=== PATIENT | male | born 1950 | race Caucasian/White ===

== ENCOUNTER 2020-07-26 08:21 | Emergency (ER) | payer MEDICARE, BC ==
[2020-07-26] MEDS ORDERED: Sodium Chloride 0.9% 1,000 ML IV SCH (08:45)
--- NOTE | 2020-07-26 08:48 | EDM.PDOC ---
ED HPI GENERAL MEDICAL PROBLEM - General Chief Complaint: Respiratory Problem Stated Complaint: MEDICAL EVAL Time Seen by Provider: 07/26/20 08:32 Source of Information: Reports: Patient History Limitations: Reports: No Limitations - History of Present Illness INITIAL COMMENTS - FREE TEXT/NARRATIVE: 69-year-old male presents to the ED for evaluation of dyspnea on minimal exerti on. This is a dramatic pipe changer the last 48 hours. Patient had a recent right-sided Port-A-Cath placed and it has been utilized for chemotherapy two days ago for urinary bladder cancer which was diagnosed in April of this year. He did have quite a bit of blood per urethra last night but better this morning. He is appreciated swelling of both lower extremities the right much more so than the left. He feels it has gone down a little bit overnight. Denies cough or sputum production. No fever or chills. Onset: Sudden Onset Date: 07/25/20 Duration: Hour(s):, Constant Location: Reports: Chest (Dyspnea on minimal exertion.), Lower Extremity, Left (Right lower extremity swelling left lower extremity swelling), Lower Extremity, Right Quality: Reports: Other (Denies any chest pain per se.) Severity: Moderate Improves with: Reports: Rest Worsens with: Reports: Movement Context: Denies: Activity, Exercise (Exertion makes it much worse.), Lifting, Sick Contact, Trauma, Other Associated Symptoms: Reports: Cough, Shortness of Breath. Denies: No Other Symptoms, Confusion, Chest Pain, cough w sputum (Normal with no sputum production), Diaphoresis, Fever/Chills, Headaches, Loss of Appetite, Malaise, Nausea/Vomiting, Rash, Seizure, Syncope, Weakness Treatments HAIRSPRING TRUER: Reports: Other (see below) (None.) Chest Pain Score (Numeric/FACES): 4 - Related Data Allergies Allergy/AdvReac Type Severity Reaction Status Date / Time No Known Allergies Allergy Verified 07/26/20 08:27 Home Meds: Home Meds Aspirin [Halfprin] 81 mg PO DAILY 07/26/20 [History] Cholecalciferol (Vitamin D3) [Vitamin D3] 1,000 unit PO DAILY 07/26/20 [History] Furosemide [Lasix] 20 mg PO DAILY #21 tab 07/26/20 [Rx] Loratadine 10 mg PO DAILY 07/26/20 [History] Losartan/Hydrochlorothiazide [Losartan-HCTZ 100-12.5 MG] 12.5 - 100 mg PO DAILY 07/26/20 [History] Magnesium Oxide [Magnesium] 500 mg PO BID 07/26/20 [History] Rosuvastatin [Crestor] 10 mg PO DAILY 07/26/20 [History] metFORMIN [Glucophage XR] 500 mg PO BID 07/26/20 [History] Past Medical History Cardiovascular History: Reports: Hypertension (He off his metoprolol and taking only losartan for blood pressure control) Oncologic (Cancer) History: Reports: Bladder (Urinary bladder cancer diagnosed in April of this year recently started chemotherapy for this on July 24.) Social & Family History - Living Situation & Occupation Living situation: Reports: Occupation: Retired ED ROS GENERAL - Review of Systems Review Of Systems: See Below Constitutional: Reports: Malaise, Weakness, Fatigue. Denies: Fever, Chills HEENT: Reports: No Symptoms Respiratory: Reports: Shortness of Breath, Cough (Minimal). Denies: Wheezing, Pleuritic Chest Pain, Sputum, Hemoptysis ( no sputum production) Cardiovascular: Reports: Blood Pressure Problem, Dyspnea on Exertion, Edema (Both lower extremities have become more swollen over the last few days.). D enies: Chest Pain, Claudication (On medication for hypertension), Lightheadedness, Orthopnea Endocrine: Reports: Fatigue GI/Abdominal: Reports: No Symptoms : Reports: Other (Patient states he voided normally shortly before midnight but about 2:00 this morning he passed a large amount of pure bright bright red blood and clots. Later this morning the urine was again clear.) Musculoskeletal: Reports: Back Pain, Other (Both knees have been replaced. Right total shoulder as well.) Skin: Reports: No Symptoms Neurological: Reports: No Symptoms Psychiatric: Reports: No Symptoms Hematologic/Lymphatic: Reports: No Symptoms Immunologic: Reports: No Symptoms ED EXAM, GENERAL - Physical Exam Exam: See Below Exam Limited By: No Limitations General Appearance: Alert, WD/WN, No Apparent Distress, Other (Temperature is 36.4. Heart rate 80 and sinus respiratory is 12 O2 sats 100% room air BP 163/80.) Eye Exam: Bilateral Eye: Normal Inspection (No blepharal pallor or scleral icterus.), Proptosis Throat/Mouth: Normal Inspection, Normal Lips, Normal Teeth, Normal Oropharynx Head: Atraumatic, Normocephalic Neck: Normal Inspection, Supple, Non-Tender, Full Range of Motion. No: Carotid Bruit, Lymphadenopathy (L), Lymphadenopathy (R) Respiratory/Chest: No Respiratory Distress, Lungs Clear, Normal Breath Sounds, No Accessory Muscle Use. No: Respiratory Distress, Rhonchi, Wheezing Cardiovascular: Normal Peripheral Pulses, Regular Rate, Rhythm, No Gallop, No Murmur, No Rub. No: No Edema Peripheral Pulses: 2+: Posterior Tibial (L), Posterior Tibial (R), Dorsalis Pedis (L), Dorsalis Pedis (R) GI/Abdominal: Normal Bowel Sounds, Soft, Non-Tender, No Organomegaly, No Mass, Pelvis Stable, Other (Mall easily reproducible umbilical hernia.) Back Exam: Normal Inspection, Full Range of Motion. No: CVA Tenderness (L), CVA Tenderness (R) Extremities: Normal Inspection, Pedal Edema ( midline incisions over both knees from total knee replacements. Plus pitting edema both lower extremities worse on the right as compared to the left.), Other (Well-healed) Neurological: Alert, Oriented, CN II-XII Intact, Normal Cognition Psychiatric: Normal Affect, Normal Mood Skin Exam: Warm, Dry, Intact, Normal Color, No Rash #2 Interpretation EKG Date: 07/26/20 Time: 08:49 Rhythm: NSR Rate (Beats/Min): 78 [place]: LAD-Left [place] Deviation (Left axis deviation -51 degrees.) P-Wave: Present QRS: Other (Initial poor R wave progression. Incomplete right bundle branch block pattern) ST-T: Normal QT: Normal EKG Interpretation Comments: Abnormal ECG Course - Vital Signs Last Recorded V/S: Last Vital Signs Temp 36.6 C 07/26/20 13:30 Pulse 80 07/26/20 13:30 Resp 12 07/26/20 13:30 BP 131/71 07/26/20 13:30 Pulse Ox 100 07/26/20 13:30 - Orders/Labs/Meds Orders: Active Orders 24 hr Category Date Time Status EKG Documentation Completion [RC] STAT Care 07/26/20 08:43 Active CULTURE URINE [RM] Stat Lab 07/26/20 10:23 Received Sodium Chloride 0.9% [Normal Saline] 1,000 ml Med 07/26/20 08:45 Active IV ASDIRECTED Transfuse RBC [Transfuse Red Blood Cells] [COMM] Stat Oth 07/26/20 09:44 Ordered Medication Orders Sodium Chloride (Normal Saline) 1,000 mls @ 125 mls/hr IV ASDIRECTED [facility] Admin: 07/26/20 09:12 Dose: 125 mls/hr Documented by: AKIN Labs: Laboratory Tests 07/26/20 07/26/20 07/26/20 Range/Units 09:08 09:08 09:08 WBC 8.03 (4.23-9.07) K/mm3 RBC 2.08 L (4.63-6.08) M/mm3 Hgb 6.7 L* (13.7-17.5) gm/dl Hct 20.8 L (40.1-51.0) % MCV 100.0 H (79.0-92.2) fl MCH 32.2 (25.7-32.2) pg MCHC 32.2 (32.2-35.5) g/dl RDW Std Deviation 52.2 H (35.1-43.9) fL Plt Count 28 L (163-337) K/mm3 MPV 10.3 (9.4-12.3) fl Neut % (Auto) 76.1 H (34.0-67.9) % Lymph % (Auto) 13.0 L (21.8-53.1) % Cedar % (Auto) 8.7 (5.3-12.2) % Eos % (Auto) 1.0 (0.8-7.0) Baso % (Auto) 0.2 (0.1-1.2) % Neut # (Auto) 6.11 H (1.78-5.38) K/mm3 Lymph # (Auto) 1.04 L (1.32-3.57) K/mm3 Cedar # (Auto) 0.70 (0.30-0.82) K/mm3 Eos # (Auto) 0.08 (0.04-0.54) K/mm3 Baso # (Auto) 0.02 (0.01-0.08) K/mm3 Manual Slide Review Abnormal smear PT 11.9 (9.7-12.0) SECONDS INR 1.11 APTT 24.5 (21.7-31.4) SECONDS D-Dimer, Quantitative (0.19-0.50) mg/L Sodium 137 (136-145) mEq/L Potassium 4.3 (3.5-5.1) mEq/L Chloride 104 (98-107) mEq/L Carbon Dioxide 24 (21-32) mEq/L Anion Gap 13.3 (5-15) BUN 12 (7-18) mg/dL Creatinine 0.8 (0.7-1.3) mg/dL Est Cr Clr Drug Dosing 85.92 mL/min Estimated GFR (MDRD) > 60 (>60) mL/min BUN/Creatinine Ratio 15.0 (14-18) Glucose 132 H (80-115) mg/dL Calcium 8.8 (8.5-10.1) mg/dL Magnesium 1.5 L (1.8-2.4) mg/dl Total Bilirubin 0.4 (0.2-1.0) mg/dL AST 17 (15-37) U/L ALT 18 (16-63) U/L Alkaline Phosphatase 114 (46-116) U/L CK-MB (CK-2) (0-3.6) ng/ml Troponin I (0.00-0.056) ng/mL C-Reactive Protein (<1.0) mg/dL NT-Pro-B Natriuret Pep (0-125) pg/mL Total Protein 6.0 L (6.4-8.2) g/dl Albumin 3.3 L (3.4-5.0) g/dl Globulin 2.7 gm/dL Albumin/Globulin Ratio 1.2 (1-2) Urine Color (Yellow) Urine Appearance (Clear) Urine pH (5.0-8.0) Ur Specific [place] (1.005-1.030) Urine Protein (Negative) Urine Glucose (UA) (Negative) Urine Ketones (Negative) Urine Occult Blood (Negative) Urine Nitrite (Negative) Urine Bilirubin (Negative) Urine Urobilinogen (0.2-1.0) Ur Leukocyte Esterase (Negative) Urine RBC (0-5) /hpf Urine WBC (0-5) /hpf Ur Epithelial Cells (0-5) /hpf Urine Bacteria (FEW) /hpf Urine Mucus (FEW) /hpf Blood Type Gel Antibody Screen Crossmatch 07/26/20 07/26/20 07/26/20 Range/Units 09:08 09:08 09:08 WBC (4.23-9.07) K/mm3 RBC (4.63-6.08) M/mm3 Hgb (13.7-17.5) gm/dl Hct (40.1-51.0) % MCV (79.0-92.2) fl MCH (25.7-32.2) pg MCHC (32.2-35.5) g/dl RDW Std Deviation (35.1-43.9) fL Plt Count (163-337) K/mm3 MPV (9.4-12.3) fl Neut % (Auto) (34.0-67.9) % Lymph % (Auto) (21.8-53.1) % Cedar % (Auto) (5.3-12.2) % Eos % (Auto) (0.8-7.0) Baso % (Auto) (0.1-1.2) % Neut # (Auto) (1.78-5.38) K/mm3 Lymph # (Auto) (1.32-3.57) K/mm3 Cedar # (Auto) (0.30-0.82) K/mm3 Eos # (Auto) (0.04-0.54) K/mm3 Baso # (Auto) (0.01-0.08) K/mm3 Manual Slide Review PT (9.7-12.0) SECONDS INR APTT (21.7-31.4) SECONDS D-Dimer, Quantitative 1.40 H (0.19-0.50) mg/L Sodium (136-145) mEq/L Potassium (3.5-5.1) mEq/L Chloride (98-107) mEq/L Carbon Dioxide (21-32) mEq/L Anion Gap (5-15) BUN (7-18) mg/dL Creatinine (0.7-1.3) mg/dL Est Cr Clr Drug Dosing mL/min Estimated GFR (MDRD) (>60) mL/min BUN/Creatinine Ratio (14-18) Glucose (80-115) mg/dL Calcium (8.5-10.1) mg/dL Magnesium (1.8-2.4) mg/dl Total Bilirubin (0.2-1.0) mg/dL AST (15-37) U/L ALT (16-63) U/L Alkaline Phosphatase (46-116) U/L CK-MB (CK-2) 1.5 (0-3.6) ng/ml Troponin I < 0.017 (0.00-0.056) ng/mL C-Reactive Protein 2.2 H* (<1.0) mg/dL NT-Pro-B Natriuret Pep 683 H (0-125) pg/mL Total Protein (6.4-8.2) g/dl Albumin (3.4-5.0) g/dl Globulin gm/dL Albumin/Globulin Ratio (1-2) Urine Color (Yellow) Urine Appearance (Clear) Urine pH (5.0-8.0) Ur Specific [place] (1.005-1.030) Urine Protein (Negative) Urine Glucose (UA) (Negative) Urine Ketones (Negative) Urine Occult Blood (Negative) Urine Nitrite (Negative) Urine Bilirubin (Negative) Urine Urobilinogen (0.2-1.0) Ur Leukocyte Esterase (Negative) Urine RBC (0-5) /hpf Urine WBC (0-5) /hpf Ur Epithelial Cells (0-5) /hpf Urine Bacteria (FEW) /hpf Urine Mucus (FEW) /hpf Blood Type Gel Antibody Screen Crossmatch 07/26/20 07/26/20 Range/Units 09:08 10:23 WBC (4.23-9.07) K/mm3 RBC (4.63-6.08) M/mm3 Hgb (13.7-17.5) gm/dl Hct (40.1-51.0) % MCV (79.0-92.2) fl MCH (25.7-32.2) pg MCHC (32.2-35.5) g/dl RDW Std Deviation (35.1-43.9) fL Plt Count (163-337) K/mm3 MPV (9.4-12.3) fl Neut % (Auto) (34.0-67.9) % Lymph % (Auto) (21.8-53.1) % Cedar % (Auto) (5.3-12.2) % Eos % (Auto) (0.8-7.0) Baso % (Auto) (0.1-1.2) % Neut # (Auto) (1.78-5.38) K/mm3 Lymph # (Auto) (1.32-3.57) K/mm3 [place] # (Auto) (0.30-0.82) K/mm3 Eos # (Auto) (0.04-0.54) K/mm3 Baso # (Auto) (0.01-0.08) K/mm3 Manual Slide Review PT (9.7-12.0) SECONDS INR APTT (21.7-31.4) SECONDS D-Dimer, Quantitative (0.19-0.50) mg/L Sodium (136-145) mEq/L Potassium (3.5-5.1) mEq/L Chloride (98-107) mEq/L Carbon Dioxide (21-32) mEq/L Anion Gap (5-15) BUN (7-18) mg/dL Creatinine (0.7-1.3) mg/dL Est Cr Clr Drug Dosing mL/min Estimated GFR (MDRD) (>60) mL/min BUN/Creatinine Ratio (14-18) Glucose (80-115) mg/dL Calcium (8.5-10.1) mg/dL Magnesium (1.8-2.4) mg/dl Total Bilirubin (0.2-1.0) mg/dL AST (15-37) U/L ALT (16-63) U/L Alkaline Phosphatase (46-116) U/L CK-MB (CK-2) (0-3.6) ng/ml Troponin I (0.00-0.056) ng/mL C-Reactive Protein (<1.0) mg/dL NT-Pro-B Natriuret Pep (0-125) pg/mL Total Protein (6.4-8.2) g/dl Albumin (3.4-5.0) g/dl Globulin gm/dL Albumin/Globulin Ratio (1-2) Urine Color Yellow (Yellow) Urine Appearance Clear (Clear) Urine pH 7.0 (5.0-8.0) Ur Specific [place] 1.015 (1.005-1.030) Urine Protein 1+ H (Negative) Urine Glucose (UA) Negative (Negative) Urine Ketones Negative (Negative) Urine Occult Blood 3+ H (Negative) Urine Nitrite Negative (Negative) Urine Bilirubin Negative (Negative) Urine Urobilinogen 0.2 (0.2-1.0) Ur Leukocyte Esterase Negative (Negative) Urine RBC 50-75 H (0-5) /hpf Urine WBC 5-10 H (0-5) /hpf Ur Epithelial Cells Not seen (0-5) /hpf Urine Bacteria Few (FEW) /hpf Urine Mucus Not seen (FEW) /hpf Blood Type O POSITIVE Gel Antibody Screen Negative Crossmatch See Detail Meds: Medications Generic Name Dose Route Start Last Admin Trade Name Freq PRN Reason Stop Dose Admin Sodium Chloride 1,000 mls @ 125 mls/hr 07/26/20 08:45 07/26/20 09:12 Normal Saline IV 125 mls/hr ASDIRECTED MARITZA Administration Discontinued Medications Generic Name Dose Route Start Last Admin Trade Name Freq PRN Reason Stop Dose Admin Magnesium Sulfate 2 gm in 50 mls @ 25 mls/hr 07/26/20 12:00 07/26/20 12:10 Magnesium Sulfate In Water Premix IV 07/26/20 13:59 25 mls/hr ONETIME ONE Administration - Radiology Interpretation Free Text/Narrative:: 69-year-old male presents to the ED with chief complaint of dyspnea on minimal exertion. This is an abrupt pipe changer the last 48 hours. Patient had a Port-A-Cath placed in his right upper anterior chest a few days ago and has been utilized for chemotherapy on the ninth of this month. He did void a good deal of blood per urethra last night with clots. Both lower extremities are markedly swollen right leg worse than the left. Concern for DVT exists. Also fluid retention potentially as a result of chemotherapy. Plan IV normal saline 125 mils per hour. O2 sats 100% on room air at this time. Chest x-ray and ECG to be done. Routine labs including D-dimer. Doppler ultrasound right lower extremity to be done. - Re-Assessments/Exams Free Text/Narrative Re-Assessment/Exam: 07/26/20 09:40 White blood cell count is 8.03. Differential shows 76% neutrophils 6.7 with hematocrit of 20.8 MCV 100.0. Platelet count is very low at 28,000. 07/26/20 09:45 I have spoken with the patient advised him that his hemoglobin is only 6.7 this morning. He is willing to accept blood transfusion. I will contact Dr. Reid when I get a minute here in the ED S is platelet count is as low as 28,000 as well. Chest x-ray reveals an infusion port right upper anterior chest. The lungs otherwise appear unremarkable with no consolidation. Pleural space is unremarkable no pleural effusion no pneumothorax. No cardiomegaly. He is status post right total shoulder arthroplasty. 07/26/20 11:16 PT is 11.9 with an INR of 1.11. PTT is 24.5 D-dimer is elevated at 1.40. Sodium 137 with a potassium of 4.3 chloride 104 the bicarb of 24. Anion gap is 13.3. BUN is 12 with a creatinine of 0.8 GFR greater than 60. Glucose 132 with a calcium of 8.8. Magnesium is slightly low at 1.5. Liver function normal. Troponin I is less than 0.017. C-reactive protein is 2.2. BNP mildly elevated at 683. Total protein 6.0 with an albumin fraction of 3.3. The urinalysis shows 1+ proteinuria 3+ occult blood and 50-75 RBCs per high- power field and 5-10 WBCs per high-power field. Urine culture ordered. 07/26/20 11:[address] Reid's PA--[place] and indicated that his pl atelet count is 28,000 and he will require 2 units of packed cells in the ED due to hemoglobin of 6.7. 07/26/20 11:57 Doppler ultrasound has been completed on the right lower extremity. It is unremarkable the common femoral, femoral, proximal profundofemoral and popliteal veins are patent without thrombus. The soft femoral femoral junction is patent without thrombus as well. No evidence of DVT . Started the patient to home. I am going to place him on Lasix 20 mg once daily to help with his severe dependent edema. He will be for lab work tomorrow through the hospital clinic and the results are to be forwarded to Dr. Reid's office in [place]. 07/26/20 11:59 patient has his legs elevated in the bed and the swelling is starting to go down a little bit. Hopefully it will continue to improve with blood transfusion. I will place him on Lasix 20 mg once daily as he states the skin is extremely taut on the right leg with burning and itching. Risk of venous stasis ulcer is evident. 07/26/20 13:00 patient has nearly completed his first unit of blood. He will receive a second unit of packed red blood cells IV as well. 07/26/20 14:32 she has completed both units of packed cells which hopefully will achieve a hemoglobin of around 9. He is also completed 2 g of magnesium sulfate IV. He is going to have labs repeated tomorrow in our hospital and they are to be sent to Dr. Reid's office. I will also send today's notes to his office as well. Concern would be for continuing bleeding. Continuing lowering of his hemoglobin requiring further blood transfusion and further lowering of his platelet levels. Departure - Departure Time of Disposition: 14:20 Disposition: Home, Self-Care 01 Condition: Fair Clinical Impression: Thrombocytopenia, Dependent edema, Mild congestive heart failure Anemia Qualifiers: Anemia type: other cause Adverse effect of chemotherapy Qualifiers: Encounter type: initial encounter Qualified Code(s): T45.1X5A - Adverse effect of antineoplastic and immunosuppressive drugs, initial encounter - Discharge Information *PRESCRIPTION DRUG MONITORING PROGRAM REVIEWED*: Not Applicable *COPY OF PRESCRIPTION DRUG MONITORING REPORT IN PATIENT OFE: Not Applicable Prescriptions: Furosemide [Lasix] 20 mg PO DAILY #21 tab Instructions: Blood Transfusion, Adult, Care After, [id number] Referrals: Clay Gallego MD [Primary Care Provider] - Forms: ED Department Discharge Additional Instructions: Evaluation in the emergency room today in regards to really not feeling well with generalized weakness and shortness of breath on minimal exertion a definite pipe changer the last 48 hours. You have started chemotherapy 2 days ago through a right-sided Port-A-Cath for urinary bladder cancer. You appreciated a significant amount of blood loss per urethra and bladder last evening. Lab tests revealed that you were very low on blood with a hemoglobin of 6.7 and a normal should be around 15. You therefore was given 2 units of packed red blood cells while in the ED today which should bring you up to about 9.0. Your serum platelet values were also very low at 28,000 and normal should be around 300,000. Platelets are used to help your blood clot. White blood cell was maintained. Your magnesium was slightly low at 1.5 and you therefore did receive a magnesium infusion of 2 g while you are in the department. You should continue your magnesium supplements as per your usual tonight. You need to have lab work done again tomorrow with the results sent to Dr. Nobles to make sure that your platelet count is dropped not not dropping any further. If it goes any lower you would have to travel to [place] to receive platelet transfusion since platelets are not available here in [place]. Also of your blood continues to drop you may have to return for blood transfusion. Did speak with Ciara Nobles is physician itinerant teacher assistant and she was going to make him aware of problems that occurred today. Sepsis Event Note (ED) - Evaluation Sepsis Screening Result: No Definite Risk - Focused Exam Vital Signs: Vital Signs Temp Temp Pulse Resp BP Pulse Ox 07/26/20 13:30 36.6 C 80 12 131/71 100 07/26/20 12:57 36.4 C 76 14 131/69 100 07/26/20 12:40 36.3 C 74 14 131/74 100 07/26/20 11:40 36.7 C 78 16 122/68 100 07/26/20 11:25 36.7 C 78 12 135/66 100 07/26/20 11:17 36.7 C 75 14 140/73 100 07/26/20 11:10 36.8 C 81 16 131/72 99 07/26/20 08:25 36.4 C 80 12 163/80 H 100 - My Orders Last 24 Hours: My Active Orders 07/26/20 08:43 EKG Documentation Completion [RC] STAT 07/26/20 08:45 Sodium Chloride 0.9% [Normal Saline] 1,000 ml IV ASDIRECTED 07/26/20 09:44 Transfuse RBC [Transfuse Red Blood Cells] [COMM] Stat 07/26/20 10:23 CULTURE URINE [RM] Stat - Assessment/Plan Last 24 Hours: My Active Orders 07/26/20 08:43 EKG Documentation Completion [RC] STAT 07/26/20 08:45 Sodium Chloride 0.9% [Normal Saline] 1,000 ml IV ASDIRECTED 07/26/20 09:44 Transfuse RBC [Transfuse Red Blood Cells] [COMM] Stat 07/26/20 10:23 CULTURE URINE [RM] Stat
--- NOTE | 2020-07-26 09:38 | CR ---
PROCEDURE INFORMATION: Exam: XR Chest, 1 View Exam date and time: 07/26/2020 8:33 AM Age: 69 years old Clinical indication: Dyspnea TECHNIQUE: Imaging protocol: XR of the chest Views: 1 view. COMPARISON: No relevant prior studies available. FINDINGS: Tubes, catheters and devices: An infusion port is present. Lungs: Unremarkable. No consolidation. Pleural space: Unremarkable. No pleural effusion. No pneumothorax. Heart/Mediastinum: Unremarkable. No cardiomegaly. Bones/joints: Status post right total shoulder arthroplasty. IMPRESSION: No acute findings. Thank you for allowing us to participate in the care of your patient. Dictated and Authenticated by: Hieu Angulo MD 07/26/2020 10:10 AM Central Time ([place] & [place]) JIMMY
[2020-07-26] MEDS ORDERED: Magnesium Sulfate/Water 2 GM/50 ML Premix Bag IV ONE (11:18)
[2020-07-26] MEDS ORDERED: Magnesium Sulfate/Water 2 GM/50 ML BAG IV ONE (12:00)
--- NOTE | 2020-07-26 12:26 | US ---
PROCEDURE INFORMATION: Exam: US Duplex Right Lower Extremity Veins, Limited Exam date and time: 07/26/2020 11:08 AM Age: 69 years old Clinical indication: Swelling (edema) of limb; Lower extremity, right TECHNIQUE: Imaging protocol: Real-time Duplex ultrasound of the Right Lower Extremity with 2-D paz scale, color Doppler flow and spectral waveform analysis with image documentation. Limited exam was focused on the right lower extremity veins. COMPARISON: No relevant prior studies available. FINDINGS: Right deep veins: Unremarkable. The common femoral, femoral, proximal profunda femoral and popliteal veins are patent without thrombus. Normal Doppler waveforms. Normal compressibility and/or augmentation response. Right superficial veins: Unremarkable. Saphenofemoral junction is patent without thrombus. Soft tissues: Unremarkable. IMPRESSION: No evidence of deep vein thrombosis. Thank you for allowing us to participate in the care of your patient. Dictated and Authenticated by: Hieu Angulo MD 07/26/2020 12:52 PM Central Time ([place] & [place]) JIMMY
== END 2020-07-26 15:05 | disposition home or self-care (01) ==
LOC: JD.ED 08:21
DX: D69.6 Thrombocytopenia, unspecified (principal); I11.0 Hypertensive heart disease with heart failure; I50.9 Heart failure, unspecified; T45.1X5A Adverse effect of antineoplastic and immunosuppressive drugs, initial encounter; I45.10 Unspecified right bundle-branch block; Z79.82 Long term (current) use of aspirin; Z79.899 Other long term (current) drug therapy
CPT/HCPCS: 36415; 36430; 71045; 80053; 81001; 82553; 83735; 83880; 84484; 85025; 85379; 85610; 85730; 86140; 86850; 86900; 86901; 86922; 87086; 93005; 93971; 96365; 96366; 99285; J3475; J7030; P9016; 93010; 99284

== ENCOUNTER 2020-11-01 13:04 | Emergency (ER) | payer MEDICARE, BC ==
[2020-11-01] MEDS ORDERED: Acetaminophen 325 MG Tab PO ONE (13:44)
[2020-11-01] MEDS ORDERED: Dextrose 5%-0.9% NaCl 1,000 ML IV SCH (13:45)
--- NOTE | 2020-11-01 13:47 | EDM.PDOC ---
ED HPI GENERAL MEDICAL PROBLEM - General Chief Complaint: Abdominal Pain Stated Complaint: ABD PAIN Time Seen by Provider: 11/01/20 13:19 Source of Information: Reports: Patient, Family (spouse) History Limitations: Reports: No Limitations - History of Present Illness INITIAL COMMENTS - FREE TEXT/NARRATIVE: 70-year-old male presents to the ED in the accompaniment of his . History is that of gradually worsening left lower quadrant abdominal pain that hurts to move, cough, laugh or sneeze. It also hurt quite badly riding in the vehicle in route to [place] from [facility]. 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 He stayed in [place] for 2 further weeks to make sure nothing went wrong and for follow-up. They have been back home now for a month. He reports that ileoconduit has been working well. He feels that the wound and fear to the ileoconduit the travels down to the pubic symphysis loses a little bit of serous material at times. He is appreciated some drainage per penile urethra as well which is likely seroma drainage. He states that yellow and looks like urine. Last night experienced chills almost to the point of rigors with teeth chattering. Pain is intensified in the left lower quadrant the abdomen which she is able to localize very well. He has no past history of diverticulitis. He states he has been somewhat constipated of course since having the surgery performed. He does have a Port-A-Cath right upper anterior chest which will be accessed for care. He did keep down a little bit of food today but did have nausea and vomiting yesterday. Onset: Gradual Onset Date: 10/30/20 Duration: Day(s):, Constant, Getting Worse Location: Reports: Abdomen (Well localized left lower quadrant abdominal pain) Quality: Reports: Ache Severity: Moderate (Constant aching pain left lower quadrant made worse by coughing sneezing movement.) Improves with: Reports: Rest ( 7 out of 10) Worsens with: Reports: Other (Coughing, sneezing, laughing), Movement Context: Denies: Activity (, riding in a motor vehicle made the pain much worse.), Exercise, Lifting, Sick Contact, Trauma, Other Associated Symptoms: Reports: Fever/Chills (Chills last night), Loss of Appetite, Malaise, Nausea/Vomiting (Nausea and vomiting yesterday. Did keep down some food today.). 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: Other (see below) (Only prescribed medications.) Left Lower Abdomen Pain Score (Numeric/FACES): 4 - Related Data Allergies Allergy/AdvReac Type Severity Reaction Status Date / Time No Known Allergies Allergy Verified 11/01/20 13:23 Home Meds: Home Meds Cholecalciferol (Vitamin D3) [Vitamin D3] 5,000 unit PO DAILY 07/26/20 [History] Loratadine 10 mg PO DAILY 07/26/20 [History] Losartan/Hydrochlorothiazide [Losartan-HCTZ 100-12.5 MG] 25 - 100 mg PO DAILY 07/26/20 [History] Magnesium Oxide [Magnesium] 500 mg PO DAILY 07/26/20 [History] Rosuvastatin [Crestor] 5 mg PO DAILY 07/26/20 [History] metFORMIN [Glucophage XR] 500 mg PO BID 07/26/20 [History] Acetaminophen 1,000 mg PO DAILY PRN 11/01/20 [History] Albuterol Sulfate 1 inh IH Q4H PRN 11/01/20 [History] Albuterol Sulfate [Albuterol Sulfate HFA] 2 puff INH Q4H PRN 11/01/20 [History] Cyanocobalamin (Vitamin B-12) [B-12] 500 mcg PO DAILY 11/01/20 [History] Metoprolol Succinate 50 mg PO DAILY 11/01/20 [History] Multivit-Min/FA/Lycopen/Lutein [Centrum Silver Men Tablet] 1 each PO DAILY 11/01/20 [History] Triamcinolone Acetonide [Kenalog 0.1% Crm] 1 applic TOP BID PRN 11/01/20 [History] Past Medical History HEENT History: Reports: Impaired Vision Other HEENT History: wears eyeglasses. Cardiovascular History: Reports: Hypertension Respiratory History: Reports: Asthma, Bronchitis, Recurrent, Pneumonia, Recurrent Genitourinary History: Reports: Other (See Below) Other Genitourinary History: bladder cancer Musculoskeletal History: Reports: Fracture Endocrine/Metabolic History: Reports: Diabetes, Type II (Controlled with diet and Metformin. Patient was instructed to lose weight prior to his total cystectomy and ileoconduit surgery. He lost 37 pounds. Went from 205 pounds to 168 pounds.) Immunologic History: Reports: Immunosuppression Oncologic (Cancer) History: Reports: Bladder - Infectious Disease History Infectious Disease History: Reports: Chicken Pox, Measles, Mumps - Past Surgical History HEENT Surgical History: Reports: Adenoidectomy, Tonsillectomy GI Surgical History: Reports: Appendectomy, Colonoscopy Male Surgical History: Reports: Other (See Below) Other Male Surgeries/Procedures: Bladder Removed 09/18/20, drains into a urostomy bag. Musculoskeletal Surgical History: Reports: Knee Replacement, Shoulder Replacement, Other (See Below) Other Musculoskeletal Surgeries/Procedures:: hip surgery. Social & Family History - Tobacco Use Tobacco Use Status *Q: Never Tobacco User - Caffeine Use Caffeine Use: Reports: Coffee - Recreational Drug Use Recreational Drug Use: No - Living Situation & Occupation Living situation: Reports: Occupation: Retired ED ROS GENERAL - Review of Systems Review Of Systems: See Below Constitutional: Reports: Chills, Malaise (That evening.), Weakness, Fatigue (Held), Decreased Appetite. Denies: Fever, Weight Loss HEENT: Reports: Glasses Respiratory: Reports: No Symptoms Cardiovascular: Reports: Blood Pressure Problem Endocrine: Reports: Fatigue, Other (Has known type 2 diabetes controlled with Metformin and diet.) GI/Abdominal: Reports: Abdominal Pain, Other (See history of present illness. Well localized pain to the left lower quadrant of the abdomen. Newly formed ileoconduit right lower quadrant of the abdomen.) : Reports: Other (Patient had an ileal conduit formed at the [facility] September 18 with complete cystectomy of the urinary bladder pelvic lymph node dissection with no positive lymph nodes and removal of his prostate gland.) Musculoskeletal: Reports: Back Pain, Other (Patient has had his right shoulder replaced and both knees replaced.) Skin: Reports: No Symptoms Neurological: Reports: No Symptoms Psychiatric: Reports: No Symptoms Hematologic/Lymphatic: Reports: No Symptoms Immunologic: Reports: No Symptoms ED EXAM, GI/ABD - Physical Exam Exam: See Below Exam Limited By: No Limitations General Appearance: Alert, WD/WN, No Apparent Distress, Other (Temperature is 36.3 degrees but he feels much warmer than this particularly on his abdomen and back. Heart rate at the bedside is 112 and sinus. Respiratory is 18 with O2 sats of 98% on room air. BP is 147/54) Eyes: Bilateral: Normal Appearance (No scleral icterus or blepharal pallor.) Throat/Mouth: Normal Inspection, Normal Oropharynx, Other Head: Atraumatic (Tongue is slightly dry.), Normocephalic Neck: Normal Inspection, Supple, Non-Tender, Full Range of Motion. No: Carotid Bruit, Lymphadenopathy (L), Lymphadenopathy (R) Respiratory/Chest: No Respiratory Distress, Lungs Clear, No Accessory Muscle Use, Chest Non-Tender, Other (Patient's Port-A-Cath is right upper anterior chest.) Cardiovascular: Normal Peripheral Pulses, Regular Rate, Rhythm, No Edema, No Gallop, No Murmur, No Rub GI/Abdominal Exam: Soft, No Organomegaly, No Distention, No Mass, Pelvis Stable, Guarding ( and guarding and rebound.), Rebound ( Left lower quadrant left lower quadrant), Tender (Patient has tenderness to the abdomen throughout the left hemisphere particular left lower quadrant even to light percussion. It is well localized area to the left lower quadrant with exquisite tenderness), Abnormal Bowel Sounds (Bowel sounds are present but diminished from the norm.), Other (I ileal conduit is in the right lower quadrant of his abdomen and the ostomy appears to be healing very well. There is a wound traveling from the ostomy to the pubic symphysis that is very thin and has been oozing some serous material but is not actively infected. There is no underlying fluctuation.) (Male) Exam: No Hernia Extremities: Normal Inspection, Normal Range of Motion, Non-Tender, No Pedal Edema Neurological: Alert, Oriented, CN II-XII Intact, Normal Cognition Psychiatric: Normal Affect, Normal Mood Skin Exam: Warm, Dry, Intact, Normal Color, No Rash #1 Interpretation EKG Date: 11/01/20 Time: 13:57 Rhythm: Other Rate (Beats/Min): 102 [place]: LAD-Left [place] Deviation (Left axis deviation of -60 degrees) P-Wave: Enlarged (Sitter mild left atrial hypertrophy) QRS: Other (RSR prime wave in lead V2 consider normal variant. There is an inco mplete left bundle branch block pattern there are near Q waves in leads II, III and aVF) ST-T: Other (consider old inferior wall myocardial infarction. T wave inversion in aVL nonspecific finding.) QT: Normal EKG Interpretation Comments: Abnormal ECG Course - Vital Signs Last Recorded V/S: Last Vital Signs Temp 36.3 C 11/01/20 13:19 Pulse 112 H 11/01/20 13:19 Resp 18 11/01/20 13:19 BP 147/54 H 11/01/20 13:19 Pulse Ox 98 11/01/20 13:19 - Orders/Labs/Meds Orders: Active Orders 24 hr Category Date Time Status EKG Documentation Completion [RC] STAT Care 11/01/20 13:39 Active CULTURE BLOOD [BC] Stat Lab 11/01/20 13:45 Received CULTURE BLOOD [BC] Stat Lab 11/01/20 13:53 Received Sodium Chloride 0.9% [Normal Saline] 1,000 ml Med 11/01/20 16:45 Active IV ASDIRECTED Blood Culture x2 Reflex Set [OM.PC] Stat Oth 11/01/20 13:40 Ordered Medication Orders Sodium Chloride (Normal Saline) 1,000 mls @ 150 mls/hr IV ASDIRECTED MARITZA Labs: Laboratory Tests 11/01/20 11/01/20 11/01/20 Range/Units 13:45 13:45 13:45 WBC 16.07 H (4.23-9.07) K/mm3 RBC 3.33 L (4.63-6.08) M/mm3 Hgb 10.6 L (13.7-17.5) gm/dl Hct 32.2 L (40.1-51.0) % MCV 96.7 H (79.0-92.2) fl MCH 31.8 (25.7-32.2) pg MCHC 32.9 (32.2-35.5) g/dl RDW Std Deviation 43.9 (35.1-43.9) fL Plt Count 244 D (163-337) K/mm3 MPV 9.0 L (9.4-12.3) fl Neutrophils % (Manual) 88 H (40-60) % Band Neutrophils % 0 (0-10) % Lymphocytes % (Manual) 4 L (20-40) % Atypical Lymphs % 0 % Monocytes % (Manual) 8 (2-10) % Eosinophils % (Manual) 0 L (0.8-7.0) % Basophils % (Manual) 0 L (0.2-1.2) Platelet Estimate Adequate RBC Morph Comment Normal ESR 102 H (0-15) mm/hr Sodium 130 L (136-145) mEq/L Potassium 3.6 (3.5-5.1) mEq/L Chloride 97 L (98-107) mEq/L Carbon Dioxide 21 (21-32) mEq/L Anion Gap 15.6 H (5-15) BUN 22 H (7-18) mg/dL Creatinine 1.2 (0.7-1.3) mg/dL Est Cr Clr Drug Dosing 58.30 mL/min Estimated GFR (MDRD) 60 (>60) mL/min BUN/Creatinine Ratio 18.3 H (14-18) Glucose 291 H (83-115) mg/dL Lactic Acid (0.4-2.0) mmol/L Calcium 9.0 (8.5-10.1) mg/dL Magnesium 1.7 L (1.8-2.4) mg/dl Total Bilirubin 0.3 (0.2-1.0) mg/dL AST 13 L (15-37) U/L ALT 14 L (16-63) U/L Alkaline Phosphatase 105 (46-116) U/L C-Reactive Protein 29.1 H* (<1.0) mg/dL NT-Pro-B Natriuret Pep (0-125) pg/mL Total Protein 6.9 (6.4-8.2) g/dl Albumin 2.4 L (3.4-5.0) g/dl Globulin 4.5 gm/dL Albumin/Globulin Ratio 0.5 L (1-2) Lipase 59 L (73-393) U/L Urine Color (Yellow) Urine Appearance (Clear) Urine pH (5.0-8.0) Ur Specific [place] (1.005-1.030) Urine Protein (Negative) Urine Glucose (UA) (Negative) Urine Ketones (Negative) Urine Occult Blood (Negative) Urine Nitrite (Negative) Urine Bilirubin (Negative) Urine Urobilinogen (0.2-1.0) Ur Leukocyte Esterase (Negative) Urine RBC (0-5) /hpf Urine WBC (0-5) /hpf Ur Squamous Epith Cells (0-5) /hpf Urine Bacteria (FEW) /hpf Urine Mucus (FEW) /hpf SARS-CoV-2 RNA (VAZQUEZ) (NEGATIVE) 11/01/20 11/01/20 11/01/20 Range/Units 13:45 13:45 14:20 WBC (4.23-9.07) K/mm3 RBC (4.63-6.08) M/mm3 Hgb (13.7-17.5) gm/dl Hct (40.1-51.0) % MCV (79.0-92.2) fl MCH (25.7-32.2) pg MCHC (32.2-35.5) g/dl RDW Std Deviation (35.1-43.9) fL Plt Count (163-337) K/mm3 MPV (9.4-12.3) fl Neutrophils % (Manual) (40-60) % Band Neutrophils % (0-10) % Lymphocytes % (Manual) (20-40) % Atypical Lymphs % % Monocytes % (Manual) (2-10) % Eosinophils % (Manual) (0.8-7.0) % Basophils % (Manual) (0.2-1.2) Platelet Estimate RBC Morph Comment ESR (0-15) mm/hr Sodium (136-145) mEq/L Potassium (3.5-5.1) mEq/L Chloride (98-107) mEq/L Carbon Dioxide (21-32) mEq/L Anion Gap (5-15) BUN (7-18) mg/dL Creatinine (0.7-1.3) mg/dL Est Cr Clr Drug Dosing mL/min Estimated GFR (MDRD) (>60) mL/min BUN/Creatinine Ratio (14-18) Glucose (83-115) mg/dL Lactic Acid 1.3 (0.4-2.0) mmol/L Calcium (8.5-10.1) mg/dL Magnesium (1.8-2.4) mg/dl Total Bilirubin (0.2-1.0) mg/dL AST (15-37) U/L ALT (16-63) U/L Alkaline Phosphatase (46-116) U/L C-Reactive Protein (<1.0) mg/dL NT-Pro-B Natriuret Pep 1101 H (0-125) pg/mL Total Protein (6.4-8.2) g/dl Albumin (3.4-5.0) g/dl Globulin gm/dL Albumin/Globulin Ratio (1-2) Lipase (73-393) U/L Urine Color (Yellow) Urine Appearance (Clear) Urine pH (5.0-8.0) Ur Specific [place] (1.005-1.030) Urine Protein (Negative) Urine Glucose (UA) (Negative) Urine Ketones (Negative) Urine Occult Blood (Negative) Urine Nitrite (Negative) Urine Bilirubin (Negative) Urine Urobilinogen (0.2-1.0) Ur Leukocyte Esterase (Negative) Urine RBC (0-5) /hpf Urine WBC (0-5) /hpf Ur Squamous Epith Cells (0-5) /hpf Urine Bacteria (FEW) /hpf Urine Mucus (FEW) /hpf SARS-CoV-2 RNA (VAZQUEZ) Negative (NEGATIVE) 11/01/20 Range/Units 16:30 WBC (4.23-9.07) K/mm3 RBC (4.63-6.08) M/mm3 Hgb (13.7-17.5) gm/dl Hct (40.1-51.0) % MCV (79.0-92.2) fl MCH (25.7-32.2) pg MCHC (32.2-35.5) g/dl RDW Std Deviation (35.1-43.9) fL Plt Count (163-337) K/mm3 MPV (9.4-12.3) fl Neutrophils % (Manual) (40-60) % Band Neutrophils % (0-10) % Lymphocytes % (Manual) (20-40) % Atypical Lymphs % % Monocytes % (Manual) (2-10) % Eosinophils % (Manual) (0.8-7.0) % Basophils % (Manual) (0.2-1.2) Platelet Estimate RBC Morph Comment ESR (0-15) mm/hr Sodium (136-145) mEq/L Potassium (3.5-5.1) mEq/L Chloride (98-107) mEq/L Carbon Dioxide (21-32) mEq/L Anion Gap (5-15) BUN (7-18) mg/dL Creatinine (0.7-1.3) mg/dL Est Cr Clr Drug Dosing mL/min Estimated GFR (MDRD) (>60) mL/min BUN/Creatinine Ratio (14-18) Glucose (83-115) mg/dL Lactic Acid (0.4-2.0) mmol/L Calcium (8.5-10.1) mg/dL Magnesium (1.8-2.4) mg/dl Total Bilirubin (0.2-1.0) mg/dL AST (15-37) U/L ALT (16-63) U/L Alkaline Phosphatase (46-116) U/L C-Reactive Protein (<1.0) mg/dL NT-Pro-B Natriuret Pep (0-125) pg/mL Total Protein (6.4-8.2) g/dl Albumin (3.4-5.0) g/dl Globulin gm/dL Albumin/Globulin Ratio (1-2) Lipase (73-393) U/L Urine Color Yellow (Yellow) Urine Appearance Clear (Clear) Urine pH 7.0 (5.0-8.0) Ur Specific [place] 1.020 (1.005-1.030) Urine Protein 2+ H (Negative) Urine Glucose (UA) Negative (Negative) Urine Ketones Negative (Negative) Urine Occult Blood 1+ H (Negative) Urine Nitrite Negative (Negative) Urine Bilirubin Negative (Negative) Urine Urobilinogen 0.2 (0.2-1.0) Ur Leukocyte Esterase 1+ H (Negative) Urine RBC 0-5 (0-5) /hpf Urine WBC 10-20 H (0-5) /hpf Ur Squamous Epith Cells 0-5 (0-5) /hpf Urine Bacteria Few (FEW) /hpf Urine Mucus Not seen (FEW) /hpf SARS-CoV-2 RNA (VAZQUEZ) (NEGATIVE) Meds: Medications Generic Name Dose Route Start Last Admin Trade Name Freq PRN Reason Stop Dose Admin Sodium Chloride 1,000 mls @ 150 mls/hr 11/01/20 16:45 Normal Saline IV ASDIRECTED MARITZA Discontinued Medications Generic Name Dose Route Start Last Admin Trade Name Freq PRN Reason Stop Dose Admin Acetaminophen 975 mg 11/01/20 13:44 11/01/20 14:14 Tylenol PO 11/01/20 13:45 975 mg ONETIME ONE Administration Diatrizoate Meglum/Diatrizoate Sod 90 ml 11/01/20 15:30 11/01/20 15:42 Gastrografin 37% PO 11/01/20 15:31 90 ml ONETIME ONE Administration Hydromorphone HCl 0.5 mg 11/01/20 13:48 11/01/20 14:18 Dilaudid IVPUSH 11/01/20 13:49 0.5 mg ONETIME ONE Administration Dextrose/Sodium Chloride 1,000 mls @ 250 mls/hr 11/01/20 13:45 11/01/20 14:20 Dextrose 5%-Normal Saline IV 250 mls/hr ASDIRECTED MARITZA Administration Ampicillin Sodium/Sulbactam 100 mls @ 200 mls/hr 11/01/20 14:59 11/01/20 15:20 Sodium 3 gm/ Sodium Chloride IV 11/01/20 15:28 200 mls/hr ONETIME ONE Administration Metoclopramide HCl 7.5 mg 11/01/20 13:48 11/01/20 14:16 Reglan IVPUSH 11/01/20 13:49 7.5 mg ONETIME ONE Administration - Radiology Interpretation Free Text/Narrative:: 70-year-old male presents to the ED with diffuse left lower quadrant abdominal pain that is worsened gradually over the last 2-1/2 days. He had some chills last night and early this morning. Decreased appetite with some nausea and vomiting yesterday. Did keep down some food today. Patient had a recent total cystectomy and radical pelvic floor lymphadenectomy with no positive lymph nodes and removal of his prostate at the same setting and an ileoconduit formation at the [facility] September 18. 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 Patient has been home for about a month from [place]. On my examination he does feel warm to palpation in spite of nurses regarding temperature of 36.3 degrees. He has acute tenderness on the left lower quadrant of the abdomen compatible with diverticulitis with an acute abdomen rebound tenderness and guarding. He will have CT of the abdomen performed with oral contrast only. Septic work-up will be completed. Coronavirus screen to be done as he may well require surgical management certainly will require admission to hospital. Given Tylenol 975 mg per ora for fever relief. Given Dilaudid 0.5 mg IV with Reglan 7.5 mg IV for nausea relief. - Re-Assessments/Exams Free Text/Narrative Re-Assessment/Exam: 11/01/20 14:25 chest x-ray has been done portably. It reveals cardiac silhouette to be normal. Perhaps very slight tortuosity of the thoracic aorta. No pleural effusions no pneumothorax no definitive parenchymal infiltrate. Port-A-Cath present right upper anterior chest. 11/01/20 14:42 White count is elevated at 16.07 with a left shift of 88% neutrophils. Hemoglobin slightly low at 10.6 with hematocrit of 32.2 MCV is slightly elevated at 96.7. Platelet count is 244,000. Sodium is 130 with a potassium of 3.6 chloride 97 with a bicarb of 21. Anion gap is 15.6. BUN is 22 with a creatinine of 1.2 estimated GFR is 60. Glucose is 291. Lactic acid 1.3. Magnesium is slightly low at 1.7. Calcium is 9.0. Liver function is normal. C-reactive protein markedly elevated at 29.1. BNP mildly elevated at 1101. Total protein is 6.9 with an albumin fraction of 2.4 globulin is 4.5 lip ase is normal at 59 11/01/20 15:48 CT of the abdomen and pelvis has been completed with oral contrast only. Visualized portions of the distal lungs appear normal. Liver is within normal limits with no intraductal dilatation. Pancreas is normal spleen is normal stomach appears normal. Kidneys are showing some atrophy of the cortex. No stones are identified. There is a large cyst off the inferior pole of the right kidney. There is increased stool throughout the descending colon. There is inflammation at the junction of the descending and sigmoid colon compatible with acute diverticulitis. Do not visualize any abscess formation or free air. The anatomy has been somewhat altered due to formation of a ileal conduit. The pelvis is empty with no bladder no prostate gland visualized and no significant collection of free fluid. I am going to await the radiologist's report in this regard 11/01/20 16:02 urologists over read of the CT of the abdomen pelvis has been made available. Noncontrast appearance of the liver shows no focal abnormality. Spleen size is normal. Gallbladder contains no calcified gallstones. Adrenal glands show no nodules. Cyst is noted within the upper right kidney measuring 4.3 cm. Ureters show no dilatation. Previous pelvic surgery is appreciated. There is a fluid-filled structure along the left side of the iliopsoas muscle which descends into the pelvis this was presumably due to previous surgery. Please correlate this finding has a craniocaudal dimension of 11 cm. Normal bladder is not seen there appears to be an ostomy within the right lower quadrant which connects surgically to the ureters. No bowel dilatation is seen appendix is not visualized with certainty bone window settings were reviewed which show scattered degenerative change with in the spine bilateral spondylitic defects at L5-S1 with no significant spinal listhesis. Was no comment made about it being an inflammatory reaction adjacent juncture of the descending colo n and sigmoid colon. ESR is now back and is elevated at 102. 11/01/20 16:21 Dr. Elizabeth is the urologist that performed the surgery at the [facility]. The patient gave me his phone number and it is . I got no answer at that number. I was there with the therefore to access the 1 call nurse at the [facility] who took my information and will find an appropriate personnel to over read the CTs that I have sent to them to help sort out possibility be of the ileal conduit becoming infected or the sigmoid colon. Dr. Elizabeth's PA had a look at the films but was not confident in making an assessment about inflammation around the ileal conduit. She is going to ask one of the local radiologist to have a look at the CT scan that I have sent there and then for me back with an opinion. 11/01/20 17:09 Labs reveal the urinalysis shows yellow urine that is clear. It contains 2+ proteinuria on the dip and 1+ occult blood.. It also contains 1+ leukocyte esterase. The micro shows 0-5 RBCs per high-power field and 10-20 WBCs per high-power field with very few bacteria noted. This would not be an unexpected finding for a ileal conduit. Urine will be cultured. a blood pressure of 116/79 with heart rate of 80 in sinus and O2 sats of 100% room air. 11/01/20 17:53 I was unable to speak with Dr. Marcial and Dr. Elizabeth's PA was not able to have the CT over read by radiology services at this time. The patient needs to be admitted to the hospital for IV antibiotics and further delineation of the mass in the left lower quadrant of the abdomen which well could be a lymphocele since his surgery was done so we sent. I am going to speak with Dr. Rees, if he is on-call for urology services at [facility] in [place]. 11/01/20 18:31 I have subsequently spoken with Dr. Rees and he agrees this cystic lesion in the left lower quadrant of the abdomen likely represents an infect lymphocele. He feels the patient would be better served by coming down to [facility] be admitted to [facility] with a plan for interventional radiology to perhaps drain this area tomorrow morning. I therefore did speak with on-call hospitalist Dr. Horan and she graciously accepted care of this patient. Plan will be for the patient and to travel to [place] as soon as possible. 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 Horan. Dr. Rees urology services will see him in consultation and likely he will need a lymphocele drainage by interventional radiology tomorrow Sepsis Event Note (ED) - Evaluation Sepsis Screening Result: No Definite Risk - Focused Exam Vital Signs: Vital Signs Temp Pulse Resp BP Pulse Ox 11/01/20 13:19 36.3 C 112 H 18 147/54 H 98 - My Orders Last 24 Hours: My Active Orders 11/01/20 13:39 EKG Documentation Completion [RC] STAT 11/01/20 13:40 Blood Culture x2 Reflex Set [OM.PC] Stat 11/01/20 13:45 CULTURE BLOOD [BC] Stat 11/01/20 13:53 CULTURE BLOOD [BC] Stat 11/01/20 16:45 Sodium Chloride 0.9% [Normal Saline] 1,000 ml IV ASDIRECTED - Assessment/Plan Last 24 Hours: My Active Orders 11/01/20 13:39 EKG Documentation Completion [RC] STAT 11/01/20 13:40 Blood Culture x2 Reflex Set [OM.PC] Stat 11/01/20 13:45 CULTURE BLOOD [BC] Stat 11/01/20 13:53 CULTURE BLOOD [BC] Stat 11/01/20 16:45 Sodium Chloride 0.9% [Normal Saline] 1,000 ml IV ASDIRECTED
[2020-11-01] MEDS ORDERED: HYDROmorphone 0.5 MG/0.5 ML Syringe IVPUSH ONE (13:48)
[2020-11-01] MEDS ORDERED: Metoclopramide 10 MG/2 ML SDV IVPUSH ONE (13:48)
--- NOTE | 2020-11-01 14:20 | CR ---
Chest: Portable supine view of the chest was obtained. Comparison: No prior chest imaging is available. Heart size and mediastinum appear within normal limits. Right-sided infusion catheter is seen. Lungs are clear with no acute parenchymal change. Right shoulder prosthesis is seen. Minimal degenerative change is seen within the spine. Impression: 1. Nothing acute is seen on portable supine chest x-ray. Diagnostic code #2
[2020-11-01] MEDS: Ampicillin/Sulbactam Na 3 GM in Sodium Chloride 0.9% 100 ML IV ONE ×2 (15:17→15:20)
[2020-11-01] MEDS ORDERED: Diatrizoate Meglumine/Diatrizoate Sodium 37% 120 ML Bottle PO ONE (15:30)
--- NOTE | 2020-11-01 16:01 | CT ---
CT abdomen and pelvis Technique: Multiple axial sections were obtained from above the dome of the diaphragm inferiorly through the pubic symphysis. Oral contrast was given. No IV contrast was given. Findings: Visualized lung bases show nothing acute. Noncontrast appearance of the liver shows no focal abnormality. Spleen size is normal. Gallbladder contains no calcified gallstones. Adrenal glands show no nodules. Cyst is noted within the upper right kidney measuring 4.3 cm. Ureters show no dilatation. Previous pelvic surgery is noted. There is a fluid-filled structure along the left side of the iliopsoas muscle which descends into the pelvis. This presumably is due to previous surgery. Please correlate. This finding has a craniocaudal dimension of 11.0 cm. Normal bladder is not see. There appears to be an ostomy within the right lower quadrant which connects surgically to the ureters. No bowel dilatation is seen. Appendix is not visualized with certainty. Bone window settings were reviewed which show scattered degenerative change with spine. 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 Impression: 1. Prior pelvic surgery with absent bladder. Ostomy is felt to connect to a neobladder on the low right side. 2. Large fluid-filled collection along the left iliopsoas muscle presumably representing postoperative change. Please correlate. 3. Other findings as noted above which are believed to be incidental. Diagnostic code #3
[2020-11-01] MEDS ORDERED: Sodium Chloride 0.9% 1,000 ML IV SCH (16:45)
== END 2020-11-01 18:44 ==
LOC: JD.ED 13:04
DX: R10.32 Left lower quadrant pain (principal); R50.9 Fever, unspecified; I89.8 Other specified noninfective disorders of lymphatic vessels and lymph nodes; E87.1 Hypo-osmolality and hyponatremia; I10 Essential (primary) hypertension; J45.909 Unspecified asthma, uncomplicated; E11.9 Type 2 diabetes mellitus without complications; Z79.84 Long term (current) use of oral hypoglycemic drugs; Z79.899 Other long term (current) drug therapy; Z20.822 Contact with and (suspected) exposure to COVID-19
CPT/HCPCS: 36415; 71045; 74176; 80053; 81001; 83605; 83690; 83735; 83880; 85007; 85027; 85652; 86140; 87040; 93005; 96365; 96375; 99285; A9270; J0295; J1170; J2765; J7042; Q9963; U0002; 93010

== ENCOUNTER 2020-11-07 08:06 | Emergency (ER) | payer MEDICARE, BC | END 2020-11-07 08:23 | disposition home or self-care (01) | LOC: JD.ED 08:06 | DX: Z53.21 Procedure and treatment not carried out due to patient leaving prior to being seen by health care provider (principal) ==

== ENCOUNTER 2021-11-12 17:40 | Emergency (ER) | payer MEDICARE, BC ==
[2021-11-12] MEDS: Acetaminophen 325 MG Tab PO ONE (20:39)
== END 2021-11-12 21:33 | disposition home or self-care (01) ==
LOC: JD.ED 17:40
DX: M25.521 Pain in right elbow (principal); E11.9 Type 2 diabetes mellitus without complications; I10 Essential (primary) hypertension; J45.909 Unspecified asthma, uncomplicated; Z87.891 Personal history of nicotine dependence; Z91.048 Other nonmedicinal substance allergy status; Z79.899 Other long term (current) drug therapy; Z79.84 Long term (current) use of oral hypoglycemic drugs
CPT/HCPCS: 73080; 99283; A9270

== ENCOUNTER → 2021-12-17 | Day surgery (SDC) | payer MEDICARE, BC ==
[~2021-12-17] MED LIST: Acetaminophen/HYDROcodone 325-5 MG Tab PO PRN; Bupivacaine 0.25% 10 ML SDV ONE; EPINEPHrine 1 MG/ML SDV ONE; HYDROmorphone 0.5 MG/0.5 ML Syringe IVPUSH PRN; Ketamine 500 mg/10 ML MDV ONE; Ketorolac 15 MG/ML SDV ONE; Lactated Ringers 1,000 ML IV SCH; Lidocaine 1% 4 ML ONE; Lidocaine 1% 5 ML VIAL ONE; Lidocaine 1%/Sod Bicarbonate in NS 8.4% 1 ML Syringe IDERM PRN; Magnesium Sulfate (4.06 MEQ/ML) 5 GM/10 ML SDV IV ONE; Magnesium Sulfate/Water 4 GM in Premix Bag 1 BAG IV ONE; Midazolam 1 MG/ML 2 ML SDV ONE; Ondansetron 4 MG/2 ML SDV IVPUSH PRN; Ondansetron 4 MG/2 ML SDV ONE; Propofol 200 MG/20 ML SDV ONE; Ropivacaine 0.5% 5 MG/ML 30 ML SDV ONE; Sodium Chloride 0.9% 10 ML Syringe FLUSH PRN; Sodium Chloride 0.9% 10 ML Syringe FLUSH SCH; ceFAZolin 1 GM Vial ONE; ePHEDrine 50 MG/ML SDV ONE; fentaNYL 100 MCG/2 ML SDV IVPUSH PRN; fentaNYL 100 MCG/2 ML SDV ONE
[2021-12-17] MEDS: fentaNYL 100 MCG/2 ML SDV IVPUSH PRN ×2 (15:15→15:30)
== END | disposition home or self-care (01) ==
LOC: JD.SDS 12:21
PROVIDERS: ATTEND Orthopaedic Surgery
DX: S46.211A Strain of muscle, fascia and tendon of other parts of biceps, right arm, initial encounter (principal); D64.9 Anemia, unspecified; D09.0 Carcinoma in situ of bladder; E78.00 Pure hypercholesterolemia, unspecified; I10 Essential (primary) hypertension; E11.9 Type 2 diabetes mellitus without complications; J45.909 Unspecified asthma, uncomplicated; Z87.891 Personal history of nicotine dependence; Z98.890 Other specified postprocedural states
CPT/HCPCS: 24342; 36415; 76000; 85018; 85610; 85730; C1776; J0171; J0690; J1642; J1885; J2250; J2405; J2704; J2795; J3010; J3490; J7120; 01710; 64447; 76942; 99100; J2710

== ENCOUNTER 2024-05-26 20:16 | Emergency (ER) | payer MEDICARE, BC ==
[2024-05-26 20:49] LABS: BASOPHILS PERCENT AUTO 0.4 % (0.0-1.0); EOSINOPHILS ABSOLUTE AUTO 0.1 K/mm3 (0.0-0.4); EOSINOPHILS PERCENT AUTO 0.6 % (0.0-6.0); HEMATOCRIT 34.8 % (42.0-52.0); HEMOGLOBIN 11.8 gm/dl (14.0-18.0); IMMATURE GRAN ABSOLUTE AUTO 0.03 K/mm3 (0.00-0.05); IMMATURE GRAN PERCENT AUTO 0.3 % (0.0-0.4); LYMPHOCYTES ABSOLUTE AUTO 0.5 K/mm3 (1.0-4.8); LYMPHOCYTES PERCENT AUTO 5.5 % (24.0-44.0); MEAN CORPUSCULAR HEMOGLOBIN 31.7 pg (28.0-32.0); MEAN CORPUSCULAR HGB CONC 33.9 g/dl (32.0-36.0); MEAN CORPUSCULAR VOLUME 93.5 fl (83.0-99.0); MEAN PLATELET VOLUME 8.7 fl (9.4-12.4); MONOCYTES ABSOLUTE AUTO 0.6 K/mm3 (0.0-0.8); MONOCYTES PERCENT AUTO 6.7 % (0.0-8.0); NEUTROPHILS ABSOLUTE AUTO 8.1 K/mm3 (1.8-7.7); NEUTROPHILS PERCENT AUTO 86.5 % (41.0-71.0); PLATELET COUNT,PLT 150 K/mm3 (150-400); RED BLOOD CELL COUNT 3.72 M/mm3 (4.52-5.90); WHITE BLOOD CELL COUNT,WBC 9.35 K/mm3 (3.9-11.3)
[2024-05-26] MEDS: Aspirin 81 MG Tab.Chew PO ONE (20:51)
[2024-05-26 21:35] LABS: A/G RATIO 0.8 (1-2); ALANINE AMINOTRANSFERASE,ALT 17 U/L (16-63); ALBUMIN 3.4 g/dl (3.4-5.0); ALKALINE PHOSPHATASE 71 U/L (46-116); ANION GAP 16.3 (5-15); ASPARTATE AMNIOTRANSFERASE,AST 11 U/L (15-37); BILIRUBIN TOTAL 0.7 mg/dL (0.2-1.0); BLOOD UREA NITROGEN,BUN 24 mg/dL (7-18); CALCIUM 9.8 mg/dL (8.5-10.1); CARBON DIOXIDE,CO2 22 mEq/L (21-32); CHLORIDE,CL 99 mEq/L (98-107); CREATININE 1.6 mg/dL (0.7-1.3); ESTIMATED GFR 45 mL/min (>60); GLUCOSE RANDOM 201 mg/dL (70-99); MAGNESIUM 1.6 mg/dL (1.8-2.4); POTASSIUM,K 4.3 mEq/L (3.5-5.1); PROTEIN TOTAL,TP 7.6 g/dl (6.4-8.2); SODIUM,NA 133 mEq/L (136-145); TROPONIN I HIGH SENSITIVITY 11 pg/mL (<=76); TSH 3.792 uIU/mL (0.358-3.74)
[2024-05-26 21:45] LABS: T4 FREE 1.02 ng/dL (0.76-1.46)
[2024-05-26] MEDS: Sodium Chloride 0.9% 100 ML IV SCH (22:09)
[2024-05-26] MEDS: Iopamidol 755 Mg/ML 100 ML Bottle IVPUSH ONE (22:09)
[2024-05-26] MEDS: Sodium Chloride 0.9% 10 ML Syringe FLUSH ONE (22:09)
[2024-05-27] MEDS: Magnesium Sulfate/Water 2 GM in Premix Bag 1 BAG IV ONE
[2024-05-27 00:46] LABS: CORONAVIRUS COVID-19 NAA NEGATIVE (NEGATIVE); INFLUENZA A NAA NEGATIVE (NEGATIVE); RESPIRATORY SYNCYTIAL VIR NAA NEGATIVE (NEGATIVE)
== END 2024-05-27 02:26 | disposition home or self-care (01) ==
LOC: JD.ED 20:16
DX: R00.0 Tachycardia, unspecified (principal); E83.42 Hypomagnesemia; I10 Essential (primary) hypertension; J45.909 Unspecified asthma, uncomplicated; E11.9 Type 2 diabetes mellitus without complications; Z79.84 Long term (current) use of oral hypoglycemic drugs; Z79.899 Other long term (current) drug therapy; Z79.82 Long term (current) use of aspirin; Z91.048 Other nonmedicinal substance allergy status
CPT/HCPCS: 0241U; 36415; 71045; 71275; 80053; 83735; 83880; 84439; 84443; 84484; 85025; 93005; 96365; 96366; 99285; A9270; J3475; J3490; Q9967; 93010; 99284

== ENCOUNTER 2024-08-01 17:45 | Emergency (ER) | payer MEDICARE, BC ==
[2024-08-01] MEDS ORDERED: Sodium Chloride 0.9% 10 ML Syringe FLUSH PRN (18:21)
[2024-08-01 18:28] LABS: HEMATOCRIT 34.6 % (42.0-52.0); HEMOGLOBIN 11.9 gm/dl (14.0-18.0); MEAN CORPUSCULAR HEMOGLOBIN 31.4 pg (28.0-32.0); MEAN CORPUSCULAR HGB CONC 34.4 g/dl (32.0-36.0); MEAN CORPUSCULAR VOLUME 91.3 fl (83.0-99.0); PLATELET COUNT,PLT 264 K/mm3 (150-400); RED BLOOD CELL COUNT 3.79 M/mm3 (4.52-5.90); WHITE BLOOD CELL COUNT,WBC 10.68 K/mm3 (3.9-11.3)
[2024-08-01 18:35] LABS: INR 1.17; PROTHROMBIN TIME 12.3 SECONDS (9.7-12.0)
[2024-08-01 18:43] LABS: LACTIC ACID 1.3 mmol/L (0.4-2.0)
[2024-08-01 18:48] LABS: BAND PERCENT MAN 4 % (0-10); BASOPHILS PERCENT MAN 0 (0.2-1.2); EOSINOPHILS PERCENT MAN 1 % (0.8-7.0); LYMPHOCYTES % ATYPICAL MANUAL 0 %; LYMPHOCYTES PERCENT MAN 5 % (20-40); MONOCYTES PERCENT MAN 1 % (2-10)
[2024-08-01 18:49] LABS: A/G RATIO 0.7 (1-2); ALBUMIN 3.2 g/dl (3.4-5.0); ANION GAP 16.4 (5-15); BILIRUBIN TOTAL 0.5 mg/dL (0.2-1.0); BUN/CREATININE RATIO 18.6 (14-18); C-REACTIVE PROTEIN 15.91 mg/dL (<0.30); CALCIUM 9.9 mg/dL (8.5-10.1); CREATININE 1.4 mg/dL (0.7-1.3); EST CRCL DRUG DOSING (CG) 44.79 mL/min; PLATELET COUNT ESTIMATE ADEQUATE; POTASSIUM,K 4.4 mEq/L (3.5-5.1); PROTEIN TOTAL,TP 7.7 g/dl (6.4-8.2)
[2024-08-01] MEDS: Sodium Chloride 0.9% 1,000 ML IV ONE (18:49)
[2024-08-01 18:59] LABS: APPEARANCE,URINE TURBID (Clear); BILIRUBIN,URINE NEGATIVE (Negative); COLOR,URINE YELLOW (Yellow); GLUCOSE,URINE NEGATIVE (Negative); KETONES,URINE NEGATIVE (Negative); LEUKOCYTE ESTERASE,URINE 3+ (Negative); NITRITE,URINE POSITIVE (Negative); OCCULT BLOOD,URINE 2+ (Negative); PROTEIN,URINE 2+ (Negative); UROBILINOGEN,URINE 0.2 (0.2-1.0)
[2024-08-01 19:08] LABS: BACTERIA,URINE MODERATE /hpf (FEW); EPITHELIAL CELLS,URINE NOT SEEN /hpf (0-5); MUCUS,URINE NOT SEEN /hpf (FEW); WBC,URINE >100 /hpf (0-5)
[2024-08-01 19:12] LABS: CORONAVIRUS COVID-19 NAA NEGATIVE (NEGATIVE); INFLUENZA A NAA NEGATIVE (NEGATIVE); RESPIRATORY SYNCYTIAL VIR NAA NEGATIVE (NEGATIVE)
[2024-08-01] MEDS: Albuterol/Ipratropium 3.0-0.5 MG/3 ML Neb Soln NEB ONE (19:19)
[2024-08-01] MEDS: Levofloxacin 250 MG Tab PO ONE (20:31)
== END 2024-08-01 20:38 | disposition home or self-care (01) ==
LOC: JD.ED 17:45
DX: J06.9 Acute upper respiratory infection, unspecified (principal); N30.01 Acute cystitis with hematuria; I10 Essential (primary) hypertension; J45.909 Unspecified asthma, uncomplicated; E11.9 Type 2 diabetes mellitus without complications; Z90.49 Acquired absence of other specified parts of digestive tract; Z79.84 Long term (current) use of oral hypoglycemic drugs; Z79.899 Other long term (current) drug therapy; Z91.048 Other nonmedicinal substance allergy status
CPT/HCPCS: 0241U; 36415; 71046; 80053; 81001; 83605; 85007; 85027; 85610; 86140; 87040; 94640; 96360; 99285; A9270; J7030; J7620-GY

== ENCOUNTER 2024-12-17 21:05 | Inpatient (IN) | payer MEDICARE, BC ==
[2024-12-17] MEDS ORDERED: Melatonin 3 MG Tab PO PRN (21:45)
[2024-12-17] MEDS: Piperacillin/Tazobactam 4.5 GM in Sodium Chloride 0.9% 100 ML IV ONE (23:21)
[2024-12-17] MEDS: Metoprolol Succinate 50 MG Tab.ER PO ONE (23:37)
[2024-12-17] MEDS: Insulin Lispro 100 Unit/ML 3 ML KwikPen SUBCUT SCH (23:57)
[2024-12-18] MEDS: VANCOmycin 1.25 GM/250 ML 1.25 GM in Premix Bag 1 BAG IV SCH (00:02)
[2024-12-18] MEDS: Gabapentin 100 MG Cap PO ONE (00:04)
[2024-12-18] MEDS ORDERED: Piperacillin/Tazobactam 4.5 GM in Sodium Chloride 0.9% 100 ML IV SCH (02:00)
[2024-12-18] MEDS: Piperacillin/Tazobactam 4.5 GM in Sodium Chloride 0.9% 100 ML IV SCH (06:36)
[2024-12-18 10:22] LABS: BASOPHILS PERCENT AUTO 0.1 % (0.0-1.0); HEMATOCRIT 28.8 % (42.0-52.0); HEMOGLOBIN 9.3 gm/dl (14.0-18.0); IMMATURE GRAN ABSOLUTE AUTO 0.12 K/mm3 (0.00-0.05); IMMATURE GRAN PERCENT AUTO 0.8 % (0.0-0.4); LYMPHOCYTES ABSOLUTE AUTO 0.7 K/mm3 (1.0-4.8); LYMPHOCYTES PERCENT AUTO 4.3 % (24.0-44.0); MEAN CORPUSCULAR HEMOGLOBIN 30.4 pg (28.0-32.0); MEAN CORPUSCULAR HGB CONC 32.3 g/dl (32.0-36.0); MEAN CORPUSCULAR VOLUME 94.1 fl (83.0-99.0); MEAN PLATELET VOLUME 9.3 fl (9.4-12.4); MONOCYTES ABSOLUTE AUTO 0.8 K/mm3 (0.0-0.8); MONOCYTES PERCENT AUTO 5.6 % (0.0-8.0); NEUTROPHILS ABSOLUTE AUTO 13.4 K/mm3 (1.8-7.7); NEUTROPHILS PERCENT AUTO 89.2 % (41.0-71.0); PLATELET COUNT,PLT 164 K/mm3 (150-400); RED BLOOD CELL COUNT 3.06 M/mm3 (4.52-5.90); WHITE BLOOD CELL COUNT,WBC 15.06 K/mm3 (3.9-11.3)
[2024-12-18 10:42] LABS: A/G RATIO 0.6 (1-2); ALBUMIN 2.6 g/dl (3.4-5.0); ANION GAP 13.8 (5-15); BILIRUBIN TOTAL 0.2 mg/dL (0.2-1.0); BUN/CREATININE RATIO 23.3 (14-18); C-REACTIVE PROTEIN 7.68 mg/dL (<0.30); CREATININE 1.8 mg/dL (0.7-1.3); EST CRCL DRUG DOSING (CG) 35.46 mL/min; PHOSPHORUS 2.4 mg/dL (2.6-4.7); POTASSIUM,K 4.8 mEq/L (3.5-5.1); PROTEIN TOTAL,TP 6.8 g/dl (6.4-8.2)
[2024-12-18] MEDS: Sodium Phosphate 30 MMOLE in Sodium Chloride 0.9% 250 ML IV ONE (12:14)
[2024-12-18] MEDS ORDERED: Ondansetron 4 MG/2 ML SDV IV PRN (12:27)
[2024-12-18] MEDS ORDERED: oxyCODONE 5 MG Tab PO PRN (12:27)
[2024-12-18] MEDS ORDERED: Sennosides/Docusate Sodium 50-8.6 MG Tab PO PRN (12:27)
[2024-12-18] MEDS ORDERED: Triamcinolone Acetonide 0.1% Crm 15 GM Tube TOP PRN (12:33)
[2024-12-18] MEDS ORDERED: IPRATROPIUM NASBOTH PRN (12:35)
[2024-12-18] MEDS: Enoxaparin 40 MG/0.4 ML Syringe SUBCUT SCH (13:21)
[2024-12-18] MEDS: Diclofenac Sodium 1% Gel 100 GM Tube TOP SCH (13:21)
[2024-12-18] MEDS: Rosuvastatin 10 MG Tab PO SCH (13:21)
[2024-12-18] MEDS ORDERED: Gabapentin 100 MG Cap PO ONE (22:00)
[2024-12-19] MEDS: Acetaminophen 325 MG Tab PO PRN (00:13)
[2024-12-19 05:27] LABS: BASOPHILS PERCENT AUTO 0.2 % (0.0-1.0); EOSINOPHILS PERCENT AUTO 0.2 % (0.0-6.0); HEMATOCRIT 30.8 % (42.0-52.0); HEMOGLOBIN 9.9 gm/dl (14.0-18.0); IMMATURE GRAN ABSOLUTE AUTO 0.05 K/mm3 (0.00-0.05); IMMATURE GRAN PERCENT AUTO 0.5 % (0.0-0.4); LYMPHOCYTES ABSOLUTE AUTO 0.9 K/mm3 (1.0-4.8); LYMPHOCYTES PERCENT AUTO 8.9 % (24.0-44.0); MEAN CORPUSCULAR HEMOGLOBIN 30.1 pg (28.0-32.0); MEAN CORPUSCULAR HGB CONC 32.1 g/dl (32.0-36.0); MEAN CORPUSCULAR VOLUME 93.6 fl (83.0-99.0); MEAN PLATELET VOLUME 9.2 fl (9.4-12.4); MONOCYTES ABSOLUTE AUTO 0.9 K/mm3 (0.0-0.8); MONOCYTES PERCENT AUTO 8.6 % (0.0-8.0); NEUTROPHILS ABSOLUTE AUTO 8.3 K/mm3 (1.8-7.7); NEUTROPHILS PERCENT AUTO 81.6 % (41.0-71.0); PLATELET COUNT,PLT 167 K/mm3 (150-400); RED BLOOD CELL COUNT 3.29 M/mm3 (4.52-5.90); WHITE BLOOD CELL COUNT,WBC 10.14 K/mm3 (3.9-11.3)
[2024-12-19 05:55] LABS: A/G RATIO 0.6 (1-2); ALBUMIN 2.4 g/dl (3.4-5.0); ANION GAP 14.5 (5-15); BILIRUBIN TOTAL 0.2 mg/dL (0.2-1.0); BUN/CREATININE RATIO 22.2 (14-18); C-REACTIVE PROTEIN 4.77 mg/dL (<0.30); CALCIUM 8.7 mg/dL (8.5-10.1); CREATININE 1.8 mg/dL (0.7-1.3); EST CRCL DRUG DOSING (CG) 35.46 mL/min; MAGNESIUM 1.9 mg/dL (1.8-2.4); PHOSPHORUS 3.5 mg/dL (2.6-4.7); POTASSIUM,K 4.5 mEq/L (3.5-5.1); PROTEIN TOTAL,TP 6.3 g/dl (6.4-8.2)
[2024-12-19 07:12] LABS: HEMOGLOBIN A1C 7.9 %
[2024-12-19] MEDS: Albuterol 6.7 GM Inhaler INH PRN (08:30)
[2024-12-19] MEDS: Calcium Carbonate 500 MG Tab.Chew PO PRN (11:08)
[2024-12-19] MEDS: cefTRIAXone 2 GM Vial IVPUSH SCH (13:48)
[2024-12-19] MEDS: Magnesium Sulfat/D5W 1GM/100ML 1 GM in Premix Bag 1 BAG IV ONE (13:48)
[2024-12-19] MEDS ORDERED: Fluticasone NASAL Spray 16 GM Bottle NAS PRN (19:02)
[2024-12-19] MEDS: Metoprolol Succinate 50 MG Tab.ER PO SCH (21:17)
[2024-12-19] MEDS: VANCOmycin 1 GM in Sodium Chloride 0.9% 250 ML IV SCH (22:18)
[2024-12-20 08:16] LABS: BASOPHILS PERCENT AUTO 0.4 % (0.0-1.0); EOSINOPHILS ABSOLUTE AUTO 0.1 K/mm3 (0.0-0.4); EOSINOPHILS PERCENT AUTO 0.8 % (0.0-6.0); HEMOGLOBIN 11.1 gm/dl (14.0-18.0); IMMATURE GRAN ABSOLUTE AUTO 0.03 K/mm3 (0.00-0.05); IMMATURE GRAN PERCENT AUTO 0.3 % (0.0-0.4); LYMPHOCYTES ABSOLUTE AUTO 0.9 K/mm3 (1.0-4.8); LYMPHOCYTES PERCENT AUTO 9.3 % (24.0-44.0); MEAN CORPUSCULAR HEMOGLOBIN 30.2 pg (28.0-32.0); MEAN CORPUSCULAR HGB CONC 32.6 g/dl (32.0-36.0); MEAN CORPUSCULAR VOLUME 92.6 fl (83.0-99.0); MONOCYTES ABSOLUTE AUTO 0.9 K/mm3 (0.0-0.8); MONOCYTES PERCENT AUTO 8.7 % (0.0-8.0); NEUTROPHILS PERCENT AUTO 80.5 % (41.0-71.0); PLATELET COUNT,PLT 187 K/mm3 (150-400); RED BLOOD CELL COUNT 3.67 M/mm3 (4.52-5.90); WHITE BLOOD CELL COUNT,WBC 9.98 K/mm3 (3.9-11.3)
[2024-12-20 09:02] LABS: A/G RATIO 0.6 (1-2); ALBUMIN 2.8 g/dl (3.4-5.0); ANION GAP 15.3 (5-15); BILIRUBIN TOTAL 0.4 mg/dL (0.2-1.0); BUN/CREATININE RATIO 19.3 (14-18); C-REACTIVE PROTEIN 10.4 mg/dL (<0.30); CALCIUM 9.6 mg/dL (8.5-10.1); CREATININE 1.5 mg/dL (0.7-1.3); EST CRCL DRUG DOSING (CG) 42.55 mL/min; POTASSIUM,K 4.3 mEq/L (3.5-5.1); PROTEIN TOTAL,TP 7.5 g/dl (6.4-8.2)
[2024-12-20] MEDS: Piperacillin/Tazobactam 4.5 GM in Sodium Chloride 0.9% 100 ML IV SCH (14:35)
[2024-12-21 05:07] LABS: ANION GAP 15.3 (5-15); BUN/CREATININE RATIO 18.6 (14-18); C-REACTIVE PROTEIN 9.9 mg/dL (<0.30); CALCIUM 9.1 mg/dL (8.5-10.1); CREATININE 1.4 mg/dL (0.7-1.3); EST CRCL DRUG DOSING (CG) 45.59 mL/min; POTASSIUM,K 4.3 mEq/L (3.5-5.1)
== END 2024-12-21 11:22 | disposition home or self-care (01) | DRG 872 ==
LOC: JD.MS 21:05
PROVIDERS: ADMIT Student in an Organized Health Care Education/Training Program; ATTEND Family Medicine
DX: R78.81 Bacteremia (principal); N39.0 Urinary tract infection, site not specified; N17.9 Acute kidney failure, unspecified; N18.9 Chronic kidney disease, unspecified; I10 Essential (primary) hypertension; J45.909 Unspecified asthma, uncomplicated; G47.33 Obstructive sleep apnea (adult) (pediatric); H91.90 Unspecified hearing loss, unspecified ear; H54.7 Unspecified visual loss; M19.90 Unspecified osteoarthritis, unspecified site; D64.9 Anemia, unspecified; E11.65 Type 2 diabetes mellitus with hyperglycemia; Z90.49 Acquired absence of other specified parts of digestive tract; Z96.659 Presence of unspecified artificial knee joint; Z85.51 Personal history of malignant neoplasm of bladder; Z96.619 Presence of unspecified artificial shoulder joint; Z87.891 Personal history of nicotine dependence; Z98.890 Other specified postprocedural states; Z79.82 Long term (current) use of aspirin; Z79.899 Other long term (current) drug therapy
CPT/HCPCS: 36415; 80048; 80053; 80202; 82947; 83036; 83735; 84100; 85025; 86140; 87040; 93306; 94640; 94760; 94761; A9270-GY; J0696; J1650; J1815; J2543; J3372; J3475; J3490